=== PATIENT | male | born 1990 | race Caucasian/White ===

== ENCOUNTER 2018-04-15 07:32 | Outpatient (CLI) | payer OTHER ==
--- NOTE | 2018-04-15 09:27 | MRI ---
MRI RIGHT KNEE WITHOUT CONTRAST: Date: 04/15/18 HISTORY: N23.91 internal derangement of right knee. COMPARISON: None. FINDINGS: Medial Meniscus: Intact. Lateral Meniscus: Intact. ACL, PCL, MCL, and LCL: Intact. Extensor Mechanism: Quadriceps tendon, patella, and patellar tendon are all intact. Cartilage: Patellofemoral compartment: Intact. Medial compartment: Intact. Lateral compartment: Intact. Muscles: Muscle signal and bulk normal. Soft Tissues: No significant joint effusion. No popliteal cyst effusion. IMPRESSION: Normal MRI of the knee. No internal derangement. POS: [facility]
== END 2018-04-15 07:33 | disposition home or self-care (01) ==
LOC: TBSIIMAG 07:32
PROVIDERS: ATTEND Orthopaedic Surgery
DX: M23.91 Unspecified internal derangement of right knee (principal)